=== PATIENT | female | born 1990 | race Caucasian/White ===

== ENCOUNTER 2016-09-12 11:07 | Emergency (ER) | payer MEDICAID ==
[2016-09-12] MEDS ORDERED: ONDANSETRON DISINTEGRATING 4 MG TAB PO ONE (12:17)
[2016-09-12] MEDS ORDERED: DIAZEPAM 10 MG/2 ML SYR IVP ONE (12:57)
--- NOTE | 2016-09-12 12:57 | EDPHY ---
H & P Stated Complaint: awakened with vertigo/room spinning with movement/nausea HPI/ROS: CHIEF COMPLAINT: Vertigo HISTORY OF PRESENT ILLNESS: This is a generally healthy 26-year-old female who woke this morning, turned over in her bed, and had the acute onset of vertigo. She had the sensation that the room was spinning and she was off balance. She immediately laid back down; the vertigo has persisted. She has nausea. She has not taken any medication to alleviate her symptoms. She had an episode of severe vertigo about 4 years ago. This episode lasted 3 months. She was treated by Dr. Song, nuclear pharmacist. The vertigo ultimately subsided. She denies any head for headache, recent fever, earache, change in hearing, confusion, difficulty with vision, trouble speaking, new numbness, or new weakness. She has had no recent trauma. REVIEW OF SYSTEMS: A ten point review of systems was performed and is negative with the exception of the items mentioned in the HPI. Source: Patient Exam Limitations: No limitations - Personal History LMP (Females 10-55): 22-28 Days Ago Current Tetanus/Diphtheria Vaccine: Yes - Medical/Surgical History Hx Asthma: No Hx Chronic Respiratory Disease: No Hx Diabetes: No Hx Cardiac Disease: No Hx Renal Disease: No Hx Cirrhosis: No Hx Alcoholism: No Hx HIV/AIDS: No Hx Splenectomy or Spleen Trauma: No Other PMH: vertigo. Ear tubes as a child - Social History Smoking Status: Never smoked Alcohol Use: Occasionally Additional Social History: She has 2 children, aged to and 4. - Physical Exam Exam: General Appearance: Alert. Vital signs reviewed. Eyes: Pupils equal and round, no conjunctival injection, no discharge. Anicteric. ENT, Mouth: Mucous membranes are moist, no oropharyngeal erythema or edema. Tympanic membranes with scarring, otherwise normal. Normal external auditory canals. Neck: No lymphadenopathy, supple. No meningismus. Respiratory: Lungs are clear to auscultation; no wheezes, rales, or rhonchi. Cardiovascular: Regular rate and rhythm; no murmur, rub, or gallop. Gastrointestinal: Abdomen is soft and nontender, no masses or organomegaly, bowel sounds normal. Skin: Warm and dry, no rashes on exposed skin, normal color. Back: Nontender to palpation over the thoracolumbar spine. No CVAT. Extremities: No lower extremity edema, no calf tenderness or swelling. Neurological: Alert and oriented. Moving all four extremities easily and equally. Cranial nerves II through XII are examined and are intact (visual acuity not tested). Strength is 5 over 5 bilaterally with testing of all major motor groups. Sensation is intact to light touch over all 4 extremities. Psychiatric: Normal affect. Constitutional: Initial Vital Signs Temperature (C) 36.7 C 09/12/16 11:10 Heart Rate 60 09/12/16 11:10 Respiratory Rate 18 09/12/16 11:10 Blood Pressure 114/58 L 09/12/16 11:10 O2 Sat (%) 99 09/12/16 11:10 O2 Delivery Mode Room Air Allergies/Adverse Reactions: Penicillins Allergy (Verified 09/12/16 11:09) Home Medications: Medication Instructions Recorded Meclizine HCl [Meclizine HCl 25 mg 25 mg PO Q8 PRN #10 tab 09/12/16 (RX,OTC)] Ondansetron Odt [Zofran Odt 4 mg 4 mg PO Q4 PRN #10 tab 09/12/16 (RX)] Synthroid 09/12/16 Medical Decision Making ED Course/Re-evaluation: 26 year old with peripheral vertigo, 2nd episode. We will try some IV Valium. She has received oral Zofran. At 2:00 p.m. she is feeling somewhat better after receiving Valium but continues with some mild vertigo. Will give oral meclizine. She had significant improvement with the meclizine, her vertigo was resolved entirely. She will be discharged home with prescriptions for meclizine and Zofran. Her signs and symptoms are consistent with benign peripheral vertigo. I do not suspect a central process. I doubt Meniere's. There is no evidence of infection. Differential Diagnosis: Vertigo including but not limited to peripheral causes such as benign positional vertigo, Meniere's disease, viral labyrinthitis and central causes such as CVA, and tumor. - Data Points Medications Given: Discontinued Medications Diazepam (Valium Injection) 2 mg IVP EDNOW ONE Stop: 09/12/16 12:58 Last Admin: 09/12/16 13:38 Dose: 2 mg Meclizine HCl (Meclizine Hcl) 25 mg PO ONCE ONE Stop: 09/12/16 14:00 Last Admin: 09/12/16 14:03 Dose: 25 mg Ondansetron HCl (Zofran Odt) 4 mg PO EDNOW ONE Stop: 09/12/16 12:18 Last Admin: 09/12/16 12:20 Dose: 4 mg Departure - Departure Disposition: Home, Routine, Self-Care Clinical Impression: Vertigo Condition: Good Instructions: Benign Paroxysmal Positional Vertigo (ED) Referrals: ANDIE PITTS [Primary Care Provider] - As per Instructions Prescriptions: Meclizine HCl [Meclizine HCl 25 mg (RX,OTC)] 25 mg PO Q8 PRN #10 tab PRN Reason: vertigo Ondansetron Odt [Zofran Odt 4 mg (RX)] 4 mg PO Q4 PRN #10 tab PRN Reason: nausea
[2016-09-12] MEDS ORDERED: MECLIZINE HCL 25 MG TAB PO ONE (13:59)
[2016-09-12 14:02] VITALS: TEMP 97.9
[2016-09-12 15:59] VITALS: BP 112/52; PULSE 51; RESP 16; O2SAT 96
== END 2016-09-12 15:59 | disposition home or self-care (01) ==
DX: R42 Dizziness and giddiness (principal)
CPT/HCPCS: 96374